=== PATIENT | female | born 1950 | race Caucasian/White ===

== ENCOUNTER 2021-05-22 19:12 | Observation (INO) ==
[2021-05-22] MEDS: Ondansetron ODT 4 MG TAB.RAPDIS SL STA (19:45)
[2021-05-22 20:11] LABS: Basophils % 0.5 %; Eosinophils # 0.1 K/mcL (0.0-0.6); Eosinophils % 0.7 %; Hematocrit 38.3 % (35.3-44.9); Hemoglobin 12.9 g/dL (11.5-15.4); Immature Granulocytes % 0.2 % (0-4); Lymphocytes # 0.7 K/mcL (0.6-4.6); Mean Corpuscular HGB Conc 33.7 g/dL (31.6-35.5); Mean Corpuscular Hemoglobin 30.8 pg (28.0-33.3); Mean Corpuscular Volume 91.4 fL (83.0-100.0); Mean Platelet Volume 9.7 fL (9.4-12.4); Monocytes # 0.4 K/mcL (0.0-1.3); Monocytes % 5.5 %; Neutrophils # 6.8 K/mcL (1.6-8.9); Platelet Count 301 K/mcL (140-400); Red Blood Count 4.19 M/mcL (3.82-4.97); Segmented Neutrophils % 84.1 %
[2021-05-22 20:27] LABS: BUN/Creatinine Ratio 25 (6-26); Blood Urea Nitrogen 14 mg/dL (8-23); Calcium 8.4 mg/dL (8.6-10.3); Carbon Dioxide 26 mEq/L (23-29); Chloride 92 mEq/L (98-107); Glucose 106 mg/dL (70-105); Osmolality,Calculated 259 (280-300); Potassium 3.8 mEq/L (3.5-5.1); Sodium 124 mEq/L (136-145); eGFR For African Americans > 60 (> 60); eGFR For Non-African Americans > 60 (> 60)
[2021-05-22 20:28] LABS: Troponin I < 0.03 ng/mL (< 0.04)
[2021-05-22] MEDS: 0.9 % Sodium Chloride 1,000 ML IVC SCH (21:19)
[2021-05-22] MEDS: Acetaminophen 325 MG TABLET PO ONE (21:19)
[2021-05-22 21:38] LABS: Bilirubin,Urine Negative (Negative); Blood,Urine Negative (Negative); Clarity,Urine Clear (Clear); Color,Urine Yellow (Yellow); Glucose,Urine (UA) Normal (Normal); Ketones,Urine 15 mg/dL (Negative); Leukocyte Esterase,Urine Negative (Negative); Nitrite,Urine Negative (Negative); Protein,Urine Negative (Neg-Trace); Urobilinogen,Urine Normal (Normal)
[2021-05-22 22:11] VITALS: O2SAT 93
[2021-05-22 23:07] LABS: Basophils % 0.4 %; Eosinophils % 0.5 %; Hematocrit 37.7 % (35.3-44.9); Hemoglobin 12.7 g/dL (11.5-15.4); Immature Granulocytes % 0.3 % (0-4); Lymphocytes # 0.9 K/mcL (0.6-4.6); Mean Corpuscular HGB Conc 33.7 g/dL (31.6-35.5); Mean Corpuscular Hemoglobin 30.6 pg (28.0-33.3); Mean Corpuscular Volume 90.8 fL (83.0-100.0); Mean Platelet Volume 9.6 fL (9.4-12.4); Monocytes # 0.5 K/mcL (0.0-1.3); Monocytes % 6.6 %; Neutrophils # 6.5 K/mcL (1.6-8.9); Platelet Count 296 K/mcL (140-400); Red Blood Count 4.15 M/mcL (3.82-4.97); Red Cell Distribution Width 11.9 % (11.5-14.5); Segmented Neutrophils % 81.2 %
[2021-05-22 23:13] LABS: INR 1.3
[2021-05-22 23:23] LABS: BUN/Creatinine Ratio 21 (6-26); Blood Urea Nitrogen 12 mg/dL (8-23); Calcium 8.3 mg/dL (8.6-10.3); Carbon Dioxide 24 mEq/L (23-29); Chloride 90 mEq/L (98-107); Glucose 112 mg/dL (70-105); Osmolality,Calculated 257 (280-300); Potassium 3.5 mEq/L (3.5-5.1); Sodium 123 mEq/L (136-145); eGFR For African Americans > 60 (> 60); eGFR For Non-African Americans > 60 (> 60)
[2021-05-22] MEDS: Isovue-370 500 ML BOTTLE IVP ONE (23:25)
[2021-05-23 00:19] VITALS: BP 121/67; PULSE 68; RESP 17; TEMP 97.9
[2021-05-23] MEDS: 0.9 % Sodium Chloride 1,000 ML IVC SCH (02:53)
[2021-05-23] MEDS ORDERED: lisinopriL 20 MG TABLET PO SCH (09:00)
[2021-05-23] MEDS ORDERED: atenoloL 50 MG TABLET PO SCH (09:00)
[2021-05-23] MEDS ORDERED: Loratadine 10 MG TABLET PO SCH (09:00)
[2021-05-23] MEDS ORDERED: *HR* Rivaroxaban 10 MG TABLET PO SCH (18:00)
== END 2021-05-23 03:13 | disposition other institution (70) ==
LOC: EMEROOGRE 19:12 → INPGRE 19:12
PROVIDERS: ADMIT Family Medicine; ATTEND Family Medicine